=== PATIENT | male | born 1985 | race Caucasian/White ===

== ENCOUNTER 2016-12-13 10:28 | Emergency (ER) | payer OTHER ==
[2016-12-13 10:38] VITALS: BP 123/80
[2016-12-13] MEDS ORDERED: Bacitracin Oint 1 GM U/D Packet TOP ONE (10:58)
[2016-12-13] MEDS ORDERED: Lidocaine 1% 30 ML SDV INJECT ONE (10:58)
--- NOTE | 2016-12-13 11:03 | EDM.PDOC ---
ED HPI GENERAL MEDICAL PROBLEM - General Chief Complaint: Laceration Stated Complaint: WORK COMP Time Seen by Provider: 12/13/16 11:01 Source of Information: Reports: Patient, RN, RN Notes Reviewed History Limitations: Reports: No Limitations - History of Present Illness INITIAL COMMENTS - FREE TEXT/NARRATIVE: Pt presents to the ER with c/o a laceration to the right wrist area. He states he cut his wrist on a piece of tin at work. He states the incident happened about 30 minutes prior to arrival. He states minimal pain, and denies any further problems at this time. Pt states his last tetanus shot was about 2 years ago. Onset: Today, Sudden Location: Reports: Upper Extremity, Right Quality: Reports: Sharp Severity: Mild Improves with: Reports: None Worsens with: Reports: None Associated Symptoms: Reports: No Other Symptoms - Related Data Allergies Allergy/AdvReac Type Severity Reaction Status Date / Time No Known Allergies Allergy Verified 12/13/16 10:33 Home Meds: Home Meds . [No Known Home Meds] 10/27/14 [History] Past Medical History - Infectious Disease History Infectious Disease History: Reports: None Social & Family History - Family History Family Medical History: Noncontributory - Tobacco Use Smoking Status *Q: Current Every Day Smoker Years of Tobacco use: 9 Packs/Tins Daily: 1 Used Tobacco, but Quit: No Second Hand Smoke Exposure: Yes - Caffeine Use Caffeine Use: Reports: Energy Drinks, Soda - Recreational Drug Use Recreational Drug Use: No ED ROS GENERAL - Review of Systems Review Of Systems: ROS reveals no pertinent complaints other than HPI. ED EXAM, SKIN/RASH Exam: See Below Exam Limited By: No Limitations General Appearance: Alert, WD/WN, No Apparent Distress Eye Exam: Bilateral Eye: Normal Inspection Ears: Normal External Exam, Hearing Grossly Normal Nose: Normal Inspection Throat/Mouth: Normal Inspection, Normal Voice, No Airway Compromise Head: Atraumatic, Normocephalic Neck: Normal Inspection, Supple, Non-Tender, Full Range of Motion Respiratory/Chest: No Respiratory Distress, Lungs Clear, Normal Breath Sounds, No Accessory Muscle Use, Chest Non-Tender Cardiovascular: Normal Peripheral Pulses, Regular Rate, Rhythm, No Edema, No Gallop, No JVD, No Murmur, No Rub Peripheral Pulses: 2+: Radial (L), Radial (R) GI/Abdominal: Normal Bowel Sounds, Soft, Non-Tender (Male) Exam: Deferred Rectal (Males) Exam: Deferred Back Exam: Normal Inspection, Full Range of Motion Extremities: Normal Inspection, Normal Range of Motion, Non-Tender, No Pedal Edema, Normal Capillary Refill Neurological: Alert, Oriented, Normal Cognition, No Motor/Sensory Deficits Psychiatric: Normal Affect, Normal Mood Skin: Warm, Dry, Normal Color, No Rash, Wound/Incision (2cm) Location, Skin: Upper Extremity, Right Lymphatic: No Adenopathy ED SKIN PROCEDURES - Laceration/Wound Repair Right Middle Lateral Distal Ventral Wrist Lac/Wound length In cm: 2 Appearance: Subcutaneous Distal NVT: Neuro & Vascular Intact, No Tendon Injury Anesthetic Type: Local Local Anesthesia - Lidocaine (Xylocaine): 1% Plain Local Anesthetic Volume: 2cc Skin Prep: Chlorhexidine (Hibiciens) Exploration/Debridement/Repair: Wound Explored, In a Bloodless Field, Explored to Base, No Foreign Material Found Closed with: Sutures Suture Size: 4-0 # of Sutures: 3 Suture Type: Nylon, Interrupted Drain Placement: No Sterile Dressing Applied: Nurse Tetanus Status Addressed: Yes Complications: No Course - Vital Signs Last Recorded V/S: Last Vital Signs Temp 97.4 F 12/13/16 10:34 Pulse 87 12/13/16 10:34 Resp 16 12/13/16 10:34 BP 123/80 12/13/16 10:34 Pulse Ox 98 12/13/16 10:34 - Orders/Labs/Meds Meds: Medications Discontinued Medications Generic Name Dose Route Start Last Admin Trade Name Hunter PRN Reason Stop Dose Admin Bacitracin 1 dose 12/13/16 10:58 12/13/16 11:24 Bacitracin Oint 1 Gm TOP 12/13/16 10:59 1 dose ONETIME ONE Administration Lidocaine HCl 30 ml 12/13/16 10:58 12/13/16 11:24 Xylocaine-Mpf 1% INJECT 12/13/16 10:59 30 ml ONETIME ONE Administration Departure - Departure Time of Disposition: 11:20 Disposition: Home, Self-Care 01 Condition: Good Clinical Impression: Laceration - Discharge Information Instructions: Laceration Care, Adult, [id number], Stitches, [place], or Adhesive Wound Closure, [id number] Referrals: PCP,None [Primary Care Provider] - Forms: ED Department Discharge Additional Instructions: Keep area clean and dry Follow up with your primary care facility for suture removal in 7-10 days.
== END 2016-12-13 11:27 | disposition home or self-care (01) ==
LOC: DL.ED 10:28
DX: S61.511A Laceration without foreign body of right wrist, initial encounter (principal); F17.210 Nicotine dependence, cigarettes, uncomplicated; W26.8XXA Contact with other sharp object(s), not elsewhere classified, initial encounter; Y99.0 Civilian activity done for income or pay
CPT/HCPCS: 12001; 99282

== ENCOUNTER 2024-07-18 07:24 | Emergency (ER) | payer BC, OTHER ==
[2024-07-18] MEDS: Ondansetron 4 MG/2 ML SDV IVPUSH ONE (08:08)
[2024-07-18] MEDS: Sodium Chloride 0.9% 1,000 ML IV SCH (08:09)
[2024-07-18] MEDS: Ketorolac 30 MG/ML SDV IVPUSH ONE (08:09)
[2024-07-18 08:10] LABS: O2 DELIVERY DEVICE ROOM AIR
[2024-07-18 08:14] LABS: BASOPHILS PERCENT AUTO 0.2 % (0.0-1.0); HEMATOCRIT 43.2 % (40.0-54.0); HEMOGLOBIN 14.7 g/dL (14.0-18.0); LYMPHOCYTES PERCENT AUTO 22.5 % (20.5-50.1); MEAN CORPUSCULAR HEMOGLOBIN 29.8 pg (27.0-34.0); MEAN CORPUSCULAR VOLUME 87.6 fL (80-100); MONOCYTES PERCENT AUTO 11.2 % (2-8); NEUTROPHILS PERCENT AUTO 63.1 % (42.2-75.2); PLATELET COUNT,PLT 300 10^3/uL (150-450); RED BLOOD CELL COUNT 4.93 10^6/uL (4.6-6.2); WHITE BLOOD CELL COUNT,WBC 14.4 10^3/uL (5.0-10.0)
[2024-07-18 08:16] LABS: BASE EXCESS VENOUS -0.5 mmol/l ((-2)-(+3)); BICARBONATE,VENOUS 24 mmol/l (19-25); O2 SATURATION VENOUS 57.6 % (60-80); PCO2 VENOUS 42 mmHg (41-51); PH,VENOUS 7.38 (7.31-7.41); PO2 VENOUS 33 mmHg (35-42)
[2024-07-18 08:32] LABS: INR 1.1 (0.9-1.2); PTT,PARTIAL THROMBOPLSTIN TIME 26.9 SEC (22.0-34.0)
[2024-07-18 08:43] LABS: ALANINE AMINOTRANSFERASE,ALT 31 U/L (16-63); ALBUMIN 4.2 g/dL (3.4-5.0); ALKALINE PHOSPHATASE 66 U/L (46-116); ASPARTATE AMNIOTRANSFERASE,AST 19 U/L (15-37); BILIRUBIN TOTAL 1.4 mg/dL (0.2-1.0); BLOOD UREA NITROGEN,BUN 15 mg/dL (7-18); BUN/CREATININE RATIO 16.3 (No establ ref range); CALCIUM 9.3 mg/dL (8.5-10.1); CARBON DIOXIDE,CO2 25 mmol/L (21-32); CHLORIDE,CL 101 mmol/L (98-107); CREATININE 0.92 mg/dL (0.70-1.30); EST CRCL DRUG DOSING (CG) 96.53 mL/min; ESTIMATED GFR 109 mL/min (>=60); ETHANOL BLOOD MEDICAL < 3 mg/dL (0); GLUCOSE RANDOM 132 mg/dL (70-99); MAGNESIUM 1.9 mg/dL (1.8-2.4); PROTEIN TOTAL,TP 8.3 g/dL (6.4-8.2); SODIUM,NA 138 mmol/L (136-145)
[2024-07-18 08:48] LABS: LACTIC ACID 1.5 mmol/L (0.4-2.0)
[2024-07-18 10:07] LABS: APPEARANCE,URINE SLIGHTLY CLOUDY (CLEAR); BILIRUBIN,URINE NEGATIVE (NEGATIVE); COLOR,URINE YELLOW (YELLOW); GLUCOSE,URINE NEGATIVE (NEGATIVE); KETONES,URINE 15 (NEGATIVE); LEUKOCYTE ESTERASE,URINE NEGATIVE (NEGATIVE); NITRITE,URINE NEGATIVE (NEGATIVE); OCCULT BLOOD,URINE LARGE (NEGATIVE); PH,URINE 5.5 (5.0-9.0); PROTEIN,URINE 100 (NEGATIVE); UROBILINOGEN,URINE 0.2 mg/dL (0.2-1.0)
[2024-07-18 10:17] LABS: AMORPHOUS SEDIMENT,URINE RARE /HPF (NOT SEEN); BACTERIA,URINE MODERATE /HPF (0-FEW/HPF); EPITHELIAL CELLS,URINE FEW /HPF (NOT SEEN); MUCUS,URINE MANY /LPF (NOT SEEN); RBC,URINE >100 /HPF (0-5); WBC,URINE 0-5 /HPF (0-5/HPF)
[2024-07-18] MEDS: fentaNYL 100 MCG/2 ML SDV IVPUSH ONE (10:46)
[2024-07-18] MEDS: cefTRIAXone 1 GM Vial IVPUSH ONE (10:49)
[2024-07-18 11:17] VITALS: BP 113/91; PULSE 66
== END 2024-07-18 11:21 | disposition home or self-care (01) ==
LOC: DL.ED 07:24
DX: N13.2 Hydronephrosis with renal and ureteral calculous obstruction (principal); N39.0 Urinary tract infection, site not specified
CPT/HCPCS: 36415; 71045; 74176; 80053; 80307; 81001; 82803; 83605; 83735; 84484; 85025; 85610; 85730; 86850; 86900; 86901; 87086; 96374; 96375; 99284; J0696; J1885; J2405; J3010; J7030

== ENCOUNTER 2024-07-21 10:17 | Emergency (ER) | payer BC ==
[2024-07-21 10:46] LABS: BASOPHILS PERCENT AUTO 0.2 % (0.0-1.0); EOSINOPHILS PERCENT AUTO 0.6 % (1.0-3.0); HEMOGLOBIN 14.3 g/dL (14.0-18.0); LYMPHOCYTES PERCENT AUTO 11.8 % (20.5-50.1); MEAN CORPUSCULAR HEMOGLOBIN 30.4 pg (27.0-34.0); MEAN CORPUSCULAR HGB CONC 34.9 g/dL (33.0-35.0); MONOCYTES PERCENT AUTO 8.4 % (2-8); PLATELET COUNT,PLT 275 10^3/uL (150-450); RED BLOOD CELL COUNT 4.71 10^6/uL (4.6-6.2); WHITE BLOOD CELL COUNT,WBC 16.5 10^3/uL (5.0-10.0)
[2024-07-21] MEDS: Ondansetron 4 MG/2 ML SDV IVPUSH ONE (11:03)
[2024-07-21] MEDS: Ketorolac 30 MG/ML SDV IVPUSH ONE ×2 (11:04→18:11)
[2024-07-21] MEDS: fentaNYL 100 MCG/2 ML SDV IVPUSH ONE (11:06)
[2024-07-21 11:07] LABS: A/G RATIO 1.1; ALANINE AMINOTRANSFERASE,ALT 23 U/L (16-63); ALBUMIN 4.4 g/dL (3.4-5.0); ALKALINE PHOSPHATASE 67 U/L (46-116); ASPARTATE AMNIOTRANSFERASE,AST 17 U/L (15-37); BILIRUBIN TOTAL 1.4 mg/dL (0.2-1.0); BLOOD UREA NITROGEN,BUN 15 mg/dL (7-18); CALCIUM 9.8 mg/dL (8.5-10.1); CARBON DIOXIDE,CO2 25 mmol/L (21-32); CHLORIDE,CL 101 mmol/L (98-107); CREATININE 1.07 mg/dL (0.70-1.30); GLUCOSE RANDOM 120 mg/dL (70-99); PROTEIN TOTAL,TP 8.4 g/dL (6.4-8.2); SODIUM,NA 140 mmol/L (136-145)
[2024-07-21 11:10] LABS: ESTIMATED GFR 91 mL/min (>=60)
[2024-07-21 11:11] LABS: LACTIC ACID 2.1 mmol/L (0.4-2.0)
[2024-07-21] MEDS ORDERED: Sodium Chloride 0.9% 1,000 ML IV SCH (11:30)
[2024-07-21] MEDS: cefTRIAXone 2 GM Vial IVPUSH ONE (11:48)
[2024-07-21] MEDS: Sodium Chloride 0.9% 1,000 ML IV SCH (11:49)
[2024-07-21] MEDS: HYDROmorphone 1 MG/ML Syringe IVPUSH ONE (12:20)
[2024-07-21] MEDS: Lactated Ringers 1,000 ML IV ONE (13:55)
[2024-07-21 15:38] LABS: APPEARANCE,URINE SLIGHTLY CLOUDY (CLEAR); BILIRUBIN,URINE NEGATIVE (NEGATIVE); COLOR,URINE DARK YELLOW (YELLOW); GLUCOSE,URINE NEGATIVE (NEGATIVE); KETONES,URINE 40 (NEGATIVE); LEUKOCYTE ESTERASE,URINE NEGATIVE (NEGATIVE); NITRITE,URINE NEGATIVE (NEGATIVE); OCCULT BLOOD,URINE MODERATE (NEGATIVE); PROTEIN,URINE 30 (NEGATIVE); UROBILINOGEN,URINE 0.2 mg/dL (0.2-1.0)
[2024-07-21 15:51] LABS: BACTERIA,URINE MODERATE /HPF (0-FEW/HPF); EPITHELIAL CELLS,URINE FEW /HPF (NOT SEEN); HYALINE CASTS,URINE RARE; MUCUS,URINE MANY /LPF (NOT SEEN); RBC,URINE 50-75 /HPF (0-5); WBC,URINE 0-5 /HPF (0-5/HPF)
[2024-07-21] MEDS: Lidocaine 2% Jelly 10 ML Urojet MUCMEM ONE (16:20)
[2024-07-21] MEDS: Nicotine 21 MG/24 Hr Patch TRDERM ONE (16:50)
[2024-07-21 18:19] VITALS: BP 122/79; PULSE 72
== END 2024-07-21 15:05 ==
LOC: DL.ED 10:17
DX: N20.0 Calculus of kidney (principal)
CPT/HCPCS: 36415; 51701; 80053; 81001; 83605; 85025; 87040; 96361; 96374; 96375; 99284; 99284-25; A9270-GY; J0696; J1171; J1885; J2405; J3010; J7030; J7120